=== PATIENT | male | born 1980 | race African-American/Black ===

== ENCOUNTER 2017-12-12 07:17 | Emergency (ER) | payer OTHER | END 2017-12-12 09:34 | disposition home or self-care (01) | LOC: M ED 07:17 | DX: M54.2 Cervicalgia (principal); R20.9 Unspecified disturbances of skin sensation; R03.0 Elevated blood-pressure reading, without diagnosis of hypertension; R10.9 Unspecified abdominal pain; G89.29 Other chronic pain; N28.9 Disorder of kidney and ureter, unspecified; Z79.899 Other long term (current) drug therapy | CPT/HCPCS: 99283 ==

== ENCOUNTER 2017-12-30 09:48 | Emergency (ER) | payer OTHER | END 2017-12-30 12:53 | disposition home or self-care (01) | LOC: M ED 09:48 | DX: M51.26 Other intervertebral disc displacement, lumbar region (principal); I10 Essential (primary) hypertension; G89.29 Other chronic pain; M54.9 Dorsalgia, unspecified; M43.06 Spondylolysis, lumbar region; Z79.899 Other long term (current) drug therapy | CPT/HCPCS: 72131 ==

== ENCOUNTER → 2018-01-07 | Outpatient (CLI) | payer OTHER ==
[~2018-01-07] MED LIST: ISOVUE-370 76% 100ML VIAL (Q9967) As Ordered
== END ==
LOC: M RAD 07:23
DX: R51 Headache (principal); Q61.3 Polycystic kidney, unspecified
CPT/HCPCS: Q9967

== ENCOUNTER → 2018-04-13 | Outpatient (REF) | payer OTHER ==
[2018-04-13 12:40] LABS: BASO % 0.3 % (0.0-1.0); EOS # 0.1 10^3/uL (0.0-0.50); EOS % 2.4 % (0.0-3.0); HEMATOCRIT 43.2 % (42.0-52.0); HEMOGLOBIN 14.6 g/dl (13.5-17.5); LYMPH # 1.6 10^3/uL (1.5-4.5); LYMPH % 54.2 % (24.0-44.0); MEAN CORPUSCULAR HEMOGLOBIN 30.3 pg (27.0-33.0); MEAN CORPUSCULAR HGB CONC 33.8 g/dl (32.0-36.5); MEAN CORPUSCULAR VOLUME 89.6 fl (80.0-96.0); MONO # 0.3 10^3/uL (0.0-0.8); MONO % 8.5 % (0.0-5.0); NEUTROPHILS % 34.6 % (36.0-66.0); PLATELET COUNT, AUTOMATED 145 10^3/uL (150-450); RED BLOOD COUNT 4.82 10^6/uL (4.30-6.10); RED CELL DISTRIBUTION WIDTH 12.5 % (11.5-14.5)
[2018-04-13 17:50] LABS: ANION GAP 6 MEQ/L (8-16); BLOOD UREA NITROGEN 15 MG/DL (7-18); CARBON DIOXIDE LEVEL 28 MEQ/L (21-32); CHLORIDE LEVEL 106 MEQ/L (98-107); CREATININE FOR GFR 1.13 MG/DL (0.70-1.30); GLOMERULAR FILTRATION RATE > 60.0 (>60); GLUCOSE, FASTING 88 MG/DL (70-100); POTASSIUM SERUM 4.6 MEQ/L (3.5-5.1); SODIUM LEVEL 140 MEQ/L (136-145)
[2018-04-14 01:55] LABS: SICKLE CELL SCREEN NEGATIVE (NEGATIVE)
== END ==
LOC: M LABDRAW1 11:57
DX: M20.11 Hallux valgus (acquired), right foot (principal)

== ENCOUNTER 2018-04-22 09:49 | Day surgery (SDC) | payer OTHER ==
[2018-04-22] MEDS ORDERED: LR 1,000 ML IV ×2 (10:00→13:15)
[2018-04-22] MEDS: BUPIVACAINE HCL 0.5% 30 ML VIAL As Ordered (11:47)
[2018-04-22] MEDS: LIDOCAINE 2% MDV 20 ML VIAL As Ordered (11:47)
[2018-04-22] MEDS ORDERED: fentaNYL 100 MCG/2 ML INJECTION (J3010) As Ordered (12:12)
[2018-04-22] MEDS: BACITRACIN PWD 50,000 UNITS VIAL As Ordered (12:12)
[2018-04-22] MEDS ORDERED: ONDANSETRON 4MG/2ML VIAL (J2405) As Ordered (12:12)
[2018-04-22] MEDS ORDERED: MIDAZOLAM INJ 2 MG/2 ML VIAL (J2250) As Ordered (12:12)
[2018-04-22] MEDS: NEOSPORIN GU IRRIG 20 ML VIAL As Ordered (12:12)
[2018-04-22] MEDS ORDERED: PROPOFOL 200 MG/20 ML VIAL As Ordered (12:12)
[2018-04-22] MEDS ORDERED: LIDOCAINE 2% INJ 100 MG/5 ML SDV (FOR ANES.) As Ordered (12:12)
[2018-04-22] MEDS: dexameTHASONE 4 MG/ML 1ML VIAL (J1100) As Ordered (12:15)
[2018-04-22] MEDS ORDERED: fentaNYL 100 MCG/2 ML INJECTION (J3010) IV (13:15)
[2018-04-22] MEDS ORDERED: HYDROMORPHONE HCL 0.5 MG/ 0.5 ML SYRINGE (J1170 PER 1) IV (13:15)
[2018-04-22] MEDS ORDERED: ONDANSETRON 4MG/2ML VIAL (J2405) IV (13:15)
[2018-04-22] MEDS ORDERED: PERCOCET 5MG/325MG TAB PO (13:15)
== END 2018-04-22 15:00 | disposition home or self-care (01) ==
LOC: M SDC 09:49
DX: M20.11 Hallux valgus (acquired), right foot (principal); R07.9 Chest pain, unspecified; I10 Essential (primary) hypertension; K76.89 Other specified diseases of liver; G43.909 Migraine, unspecified, not intractable, without status migrainosus; J45.909 Unspecified asthma, uncomplicated; R06.83 Snoring; G47.33 Obstructive sleep apnea (adult) (pediatric); N28.1 Cyst of kidney, acquired; Z79.899 Other long term (current) drug therapy; Z87.19 Personal history of other diseases of the digestive system
CPT/HCPCS: 28296

== ENCOUNTER → 2018-05-17 | Outpatient (CLI) | payer OTHER | LOC: M RAD 09:10 | DX: M54.2 Cervicalgia (principal) | CPT/HCPCS: 72141 ==

== ENCOUNTER → 2018-05-25 | Outpatient (REF) | payer OTHER | LOC: M LAB REF 13:04 | DX: L03.119 Cellulitis of unspecified part of limb (principal) ==

== ENCOUNTER 2018-10-17 16:48 | Emergency (ER) | payer OTHER ==
[2018-10-17] MEDS: KETOROLAC TROMETHAMINE 10 MG TAB PO (19:34)
[2018-10-17] MEDS: diazePAM 5 MG TAB PO (19:34)
[2018-10-17] MEDS: predniSONE 20 MG TAB PO (19:34)
== END 2018-10-17 19:36 | disposition home or self-care (01) ==
LOC: M ED 16:48
DX: S16.1XXA Strain of muscle, fascia and tendon at neck level, initial encounter (principal); X58.XXXA Exposure to other specified factors, initial encounter; Y92.89 Other specified places as the place of occurrence of the external cause; I10 Essential (primary) hypertension; Z79.899 Other long term (current) drug therapy
CPT/HCPCS: 99283